=== PATIENT | female | born 1995 | race Caucasian/White ===

== ENCOUNTER 2016-08-17 09:55 | Emergency (ER) | payer OTHER ==
[2016-08-17 10:43] VITALS: BP 94/65
--- NOTE | 2016-08-17 10:54 | UC ---
Respiratory Complaint HPI - HPI Summary HPI Summary: The patient comes in today for: 1. Cough, and sore throat: Onset: 2 days. Palliative/provocative: Drinking tea helped. Quality: Hacking. Region: Lungs. Severity: Chest pain only with coughing--better today. Time: Comes and goes. Associated symptoms: Fever: 99 last night. 100.1 this morning. Fatigue: Present Sore throat: last night--not today. Rhinitis: Present--dark yellow Cough: Productive of yellow material. Inhaler use: None. Chest pain: Present in airways. Dyspnea: None. * - History of Current Complaint Chief Complaint: UCGeneralIllness Stated Complaint: FEVER/CHEST CONGESTION Time Seen by Provider: 08/17/16 10:44 Hx Obtained From: Patient Hx Last Menstrual Period: 08/10/16 ?: No - Allergies/Home Medications Allergies/Adverse Reactions: Allergies Allergy/AdvReac Type Severity Reaction Status Date / Time No Known Allergies Allergy Verified 07/06/15 21:26 Home Medications: Home Medications Ibuprofen [Ibuprofen 200 MG] 400 mg PO Q6HR PRN 08/17/16 [History Confirmed ] PMH/Surg Hx/FS Hx/Imm Hx Previously Healthy: No - Family planning/BCP Endocrine History Of: Denies: Diabetes, Thyroid Disease, Hyperthyroidism, Hypothyroidism, Dyslipidemia Cardiovascular History Of: Denies: Cardiac Disorders, Hypertension, Pacemaker/ICD, Myocardial Infarction , Congestive Heart Failure, Atrial Fibrillation, Deep Vein Thrombosis, Bleeding Disorders Respiratory History Of: Denies: COPD, Asthma, Bronchitis, Pneumonia, Pulmonary Embolism GI/ History Of: Denies: Gastroesophageal Reflux, Ulcer, Gastrointestinal Bleed, Gall Bladder Disease, Kidney Stones, Diverticulitis, Renal Disease, Urosepsis Neurological History Of: Denies: TIA, CVA, Dementia, Seizures, Migraine Psychological History Of: Denies: Anxiety, Depression, Bipolar Disorder, Schizophrenia, Post Traumatic Stress Disorder Cancer History Of: Denies: Lung Cancer, Colorectal Cancer, Breast Cancer, Prostate Cancer, Cervical Cancer Other History Of: Negative For: HIV, Hepatitis B, Hepatitis C, Anticoagulant Therapy - Surgical History Surgical History: None - Family History Known Family History: Positive: None - Social History Occupation: Student Alcohol Use: Occasionally Substance Use Type: None Smoking Status (MU): Never Smoked Tobacco Review of Systems Constitutional: Negative Skin: Negative Eyes: Negative ENT: Nasal Discharge Respiratory: Cough Cardiovascular: Chest Pain Gastrointestinal: Negative Genitourinary: Negative All Other Systems Reviewed And Are Negative: Yes Physical Exam Triage Information Reviewed: Yes Appearance: Well-Appearing, No Pain Distress, Well-Nourished Vital Signs: Initial Vital Signs Temp 98.3 F 08/17/16 10:37 Pulse 93 08/17/16 10:37 Resp 16 08/17/16 10:37 BP 94/65 08/17/16 10:37 Pulse Ox 99 08/17/16 10:37 Vital Signs Reviewed: Yes Eyes: Positive: Conjunctiva Clear. Negative: Discharge ENT: Positive: Hearing grossly normal. Negative: Pharyngeal erythema, Nasal congestion, Nasal drainage, TM bulging, TM dull, TM red, Tonsillar swelling, Tonsillar exudate Dental: Negative: Gross Decay/Caries @, Dental Fracture @ Neck: Positive: Supple, Nontender, No Lymphadenopathy. Negative: Nuchal Rigidity Respiratory: Positive: Lungs clear, No respiratory distress, No accessory muscle use. Negative: Crackles, Rhonchi Cardiovascular: Positive: RRR, No Murmur Abdomen Description: Positive: Nontender, No Organomegaly, Soft. Negative: Distended, Guarding, Peritoneal Signs Musculoskeletal: Positive: Strength Intact, ROM Intact Neurological: Positive: Alert, Muscle Tone Normal Psychological: Positive: Age Appropriate Behavior, Consolable Skin: Negative: rashes, breakdown UC Diagnostic Evaluation - Laboratory O2 Sat by Pulse Oximetry: 99 Respiratory Course/Dx - Differential Dx/Diagnosis Differential Diagnosis/HQI/PQRI: Bronchitis, Laryngitis, Sinusitis Provider Diagnoses: Sinusitis. Bronchitis Discharge - Discharge Plan Condition: Stable Disposition: HOME Patient Education Materials: Sinusitis (ED), Acute Bronchitis (ED) Forms: *School Release Referrals: Non Staff,Doctor [Primary Care Provider] - 1 Week (Please see your primary care provider in about a week to see how well you are doing. If you get worse, please be seen sooner.)
== END 2016-08-17 11:20 | disposition home or self-care (01) ==
LOC: UCCORT 09:55
DX: J32.9 Chronic sinusitis, unspecified (principal); J40 Bronchitis, not specified as acute or chronic
CPT/HCPCS: 99212; G0463

== ENCOUNTER 2016-11-22 11:25 | Emergency (ER) | payer OTHER ==
[2016-11-22 13:10] VITALS: BP 114/78
--- NOTE | 2016-11-22 13:28 | UC ---
Ear Complaint HPI - HPI Summary HPI Summary: 21 female presents with complaints of left ear pressure that began last night and has persisted into today. States it is very irritating and uncomfortable. States she feels she has decreased hearing. Has not taken any medication prior to arrival. Denies any trauma or injury to the ear. States she has listened to loud music at the bar last night and thought it was from that until it has not gone away. 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 Admits to seasonal allergies and nasal congestion upon waking every morning. Denies any other pain or complaints at this time. Denies fever/chills, discharge and headache. Admits to slight dizziness when moving her head around quickly. - History of Current Complaint Chief Complaint: UCEar Stated Complaint: LEFT EAR PAIN Time Seen by Provider: 11/22/16 12:51 Hx Obtained From: Patient Hx Last Menstrual Period: 11/09/16 ?: No Onset/Duration: Sudden Onset, Lasting Days - 1 Severity Initially: Mild Severity Currently: Moderate Aggravating Factors: Nothing Alleviating Factors: Nothing Associated Signs/Symptoms: Positive: Hearing Loss. Negative: Discharge, Foreign Body Sensation, Trauma to Ear, Swelling @ Related History: Seasonal Allergies - Allergies/Home Medications Allergies/Adverse Reactions: Allergies Allergy/AdvReac Type Severity Reaction Status Date / Time dust Allergy Congestion Uncoded 11/22/16 13:10 PMH/Surg Hx/FS Hx/Imm Hx Endocrine History Of: Denies: Diabetes, Thyroid Disease, Hyperthyroidism, Hypothyroidism, Dyslipidemia Cardiovascular History Of: Denies: Cardiac Disorders, Hypertension, Pacemaker/ICD, Myocardial Infarction , Congestive Heart Failure, Atrial Fibrillation, Deep Vein Thrombosis, Bleeding Disorders Respiratory History Of: Denies: COPD, Asthma, Bronchitis, Pneumonia, Pulmonary Embolism GI/ History Of: Denies: Gastroesophageal Reflux, Ulcer, Gastrointestinal Bleed, Gall Bladder Disease, Kidney Stones, Diverticulitis, Renal Disease, Urosepsis Neurological History Of: Denies: TIA, CVA, Dementia, Seizures, Migraine Psychological History Of: Denies: Anxiety, Depression, Bipolar Disorder, Schizophrenia, Post Traumatic Stress Disorder Cancer History Of: Denies: Lung Cancer, Colorectal Cancer, Breast Cancer, Prostate Cancer, Cervical Cancer Other History Of: Negative For: HIV, Hepatitis B, Hepatitis C, Anticoagulant Therapy - Surgical History Surgical History: None - Family History Known Family History: Positive: None - Social History Alcohol Use: Occasionally Substance Use Type: None Smoking Status (MU): Never Smoked Tobacco - Immunization History Vaccination Up to Date: Yes Review of Systems Constitutional: Negative Skin: Negative Eyes: Negative ENT: Ear Ache, Nasal Discharge Respiratory: Negative Cardiovascular: Negative Gastrointestinal: Negative Neurovascular: Negative Musculoskeletal: Negative Neurological: Negative All Other Systems Reviewed And Are Negative: Yes Physical Exam Triage Information Reviewed: Yes Appearance: Well-Appearing, No Pain Distress, Well-Nourished Vital Signs: Initial Vital Signs Temp 99.4 F 11/22/16 13:06 Pulse 87 11/22/16 13:06 Resp 18 11/22/16 13:06 BP 114/78 11/22/16 13:06 Vital Signs Reviewed: Yes Eye Exam: Normal Eyes: Positive: Conjunctiva Clear ENT: Positive: Hearing grossly normal, Pharynx normal, Nasal congestion, TMs normal - bilaterally without cerumen, erythema and discharge, canals normal. Some clear effusion behind left TM. no perforation or mastoid tenderness. left external ear visible warts, patient known, currently being treated for. No warts noted in EAC or at TM. No blood.. Negative: Pharyngeal erythema, Nasal drainage, TM bulging, TM dull, TM red, Tonsillar swelling, Tonsillar exudate, Trismus, Muffled/hoarse voice Dental: Negative: Cervical Lymphadenopathy Neck: Positive: Supple, Nontender, No Lymphadenopathy Respiratory: Positive: Chest non-tender, Lungs clear, Normal breath sounds, No respiratory distress, No accessory muscle use Cardiovascular: Positive: RRR, No Murmur, Pulses Normal Musculoskeletal Exam: Normal Musculoskeletal: Positive: Strength Intact, ROM Intact Neurological Exam: Normal Skin Exam: Normal Ear Complaint Course/Dx - Course Course Of Treatment: given ibuprofen while in office to help with discomfort. sent flonase over for congestion. take claritin/zyrtec for congestion. ibuprofen /tylenol for pain. return if symptoms persist or worsen. aware of worsening signs and symptoms. follow up pcp. - Differential Dx/Diagnosis Differential Diagnosis/HQI/PQRI: Bronchitis, Cerumen Impaction, Foreign Body, Mastoiditis, Otitis Externa, Otitis Media, URI, Other Provider Diagnoses: eustachian tube dysfunction, left Discharge - Discharge Plan Condition: Stable Disposition: HOME Prescriptions: Fluticasone NASAL SPRAY 50MCG* [Flonase NASAL SPRAY 50MCG*] 2 spray BOTH NARES DAILY #1 btl Referrals: Non Staff,Doctor [Primary Care Provider] - Additional Instructions: Take OTC Clartin or Zyrtec as directed to decrease the fluid build up/ congestion and allergies. Use flonase daily to help with nasal congestion and allergies. Take ibuprofen for pain and inflammation. If symptoms persist or worsen such as fever/chills, hearing loss, increased pain , dizziness, discharge please return or seek medical attention promptly. Do not submerge head under water and do not stick anything into ears. Follow up with PCP. EUSTACHIAN TUBE DYSFUNCTION What is the eustachian tube? The eustachian tube is a tube that connects the middle ear (the part of the ear behind the eardrum) to the back of the nose and throat. Normally, the eustachian tube helps keep the air pressure inside the middle ear the same as the air pressure outside the middle ear. If there is a problem with the eustachian tube, the air pressure inside the middle ear won't be the same as the air pressure outside of it. This can damage the middle ear and cause ear pain, hearing loss, and other symptoms. "Ear barotrauma" is the medical term for when people have symptoms or damage in the middle ear because of air pressure differences. Most eustachian tube problems are not serious. They usually last only a short time and get better on their own. But eustachian tube problems sometimes lead to serious problems, such as: A middle ear infection A torn eardrum Hearing loss Long-term hearing loss from eustachian tube problems can also lead to language or speech problems in children. What causes eustachian tube problems? Common causes of eustachian tube problems are: Illnesses or conditions that make the eustachian tubes swollen or inflamed These include colds, allergies, ear infections, or sinus infections. The sinuses are hollow areas in the bones of the face. Sudden air pressure changes Sudden air pressure changes can happen when people fly in an airplane, scuba dive, or drive in the mountains. Growths that block the eustachian tube Being born with an abnormal eustachian tube What are the symptoms of a eustachian tube problem? Common symptoms of a eustachian tube problem include: Ear pain Feeling pressure or fullness in the ear Trouble hearing Ringing in the ear Feeling dizzy Should I see a doctor or nurse? See your doctor or nurse if your symptoms are severe, get worse, or if they don't go away after a few days. Will I need tests? Probably not. Your doctor or nurse should be able to tell if you have a eustachian tube problem by learning about your symptoms and doing an exam. If your symptoms are severe or last for a long time, your doctor or nurse might: Have you see a special kind of doctor called an ear, nose, and throat doctor Do tests to check your hearing Do an imaging test Imaging tests can create pictures of the inside of the body. How are eustachian tube problems treated? Treatment depends on what's causing the eustachian tube problem. Depending on your individual situation, your doctor might treat you with one or more of the following: Nose sprays Antihistamines These medicines are usually used to treat allergies. They help stop itching, sneezing, and runny nose symptoms. Decongestants These medicines can help with stuffy nose symptoms. Surgery Most people do not need surgery for eustachian tube problems. But people might need surgery if their symptoms don't get better with medicines or they have severe or long-term symptoms. Antibiotics are not needed to treat eustachian tube problems.
[2016-11-22] MEDS ORDERED: Ibuprofen TAB* 600 MG PO ONE (13:45)
== END 2016-11-22 14:05 | disposition home or self-care (01) ==
LOC: UCCORT 11:25
DX: H93.8X2 Other specified disorders of left ear (principal); R09.81 Nasal congestion
CPT/HCPCS: 99212; A9270-GY; G0463